=== PATIENT | female | born 1935 | race African-American/Black ===

== ENCOUNTER 2020-02-09 23:55 | Inpatient (IN) | payer MEDICARE, MEDICAID ==
[~2020-02-09] VITALS: Ht 157.5 cm; Wt 61.2 kg
[~2020-02-09 23:55] MED LIST: ASPI325T85 PO; ATOR40TA70 PO; DOCU-276; EZET10TA13 PO; INSULIN; METO25TA6 PO; POTA20TA82; VALS320T2
[2020-02-10] MEDS ORDERED: SODIUM CHLORIDE 0.9% 1,000 ML IV ONE (00:38)
[2020-02-10] MEDS ORDERED: ONDANSETRON HCL 4MG/2ML INJ IV STA (00:38)
[2020-02-10] MEDS ORDERED: MORPHINE SULFATE 4 MG/ML CPJ (NOT FOR IM USE) IV STA (00:38)
[2020-02-10 01:35] LABS: BASOPHILS % 0.5 % (0.0-2.0); HEMATOCRIT. 37.8 % (36.0-48.0); HEMOGLOBIN. 12.7 g/dL (12.0-16.0); LYMPHOCYTES % 24.5 % (20.0-50.0); MEAN CORPUSCULAR HEMOGLOBIN 32.4 pg (28.0-32.0); MEAN CORPUSCULAR VOLUME 96.6 fL (81.0-99.0); MEAN PLATELET VOLUME 9.3 fl (7.4-10.4); MONOCYTES % 6.3 % (2.0-8.0); NEUTROPHILS % 65.7 % (40.0-76.0); PLATELET 297 x1000/uL (130-400); RED BLOOD CELL COUNT 3.92 mill/uL (4.2-5.4); RED CELL DISTRIBUTION WIDTH 16.1 % (11.6-14.6)
[2020-02-10 01:36] LABS: PARTIAL THROMBOPLASTIN TIME 27.5 sec (23.4-31.0)
[2020-02-10 02:38] LABS: CHLORIDE 107 mEq/L (98-107)
[2020-02-10] MEDS ORDERED: HYDRALAZINE 20MG/ML VIAL IV ONE (04:00)
[2020-02-10] MEDS ORDERED: ONDANSETRON HCL 4MG/2ML INJ IV PRN (09:15)
[2020-02-10 09:59] VITALS: BP 122/52
[2020-02-10 10:00] VITALS: BP 122/52
[2020-02-10] MEDS: MORPHINE SULFATE 2 MG/ML CPJ (NOT FOR IM USE) IV PRN ×2 (10:18→20:05)
[2020-02-10 12:00] VITALS: BP 144/52
[2020-02-10] MEDS: SODIUM CHLORIDE 0.9% 1,000 ML IV SCH (13:35)
[2020-02-10] MEDS ORDERED: DEXTROSE 50% WATER 50ML SYRINGE IV PRN (15:15)
[2020-02-10 16:00] VITALS: BP 136/54
[2020-02-10] MEDS: INSULIN LISPRO 100 UNITS/ML SUBCUT SCH ×2 (16:50→20:17)
[2020-02-10] MEDS: BLOOD SUGAR DIAGNOSTIC STRIP TEST SCH ×2 (16:50→20:05)
[2020-02-10] MEDS ORDERED: INFLUENZA VIRUS VACCINE(AFLURIA) 0.5ML SYR IM ONE (18:15)
[2020-02-10] MEDS ORDERED: PNEUMOCOCCAL 23-VAL P-SAC VAC 0.5 ML IM ONE (18:15)
[2020-02-10 20:00] VITALS: BP 160/65
[2020-02-11] VITALS: BP 127/57
[2020-02-11] MEDS: SODIUM CHLORIDE 0.9% 1,000 ML IV SCH ×2 (03:08→11:55)
[2020-02-11 04:00] VITALS: BP 176/82
[2020-02-11] MEDS: MORPHINE SULFATE 2 MG/ML CPJ (NOT FOR IM USE) IV PRN (05:35)
[2020-02-11 06:16] LABS: BASOPHILS % 0.4 % (0.0-2.0); EOSINOPHILS % 2.8 % (0.0-5.0); HEMATOCRIT. 36.4 % (36.0-48.0); HEMOGLOBIN. 12.1 g/dL (12.0-16.0); LYMPHOCYTES % 21.1 % (20.0-50.0); MEAN CORPUSCULAR VOLUME 96.7 fL (81.0-99.0); MEAN PLATELET VOLUME 9.4 fl (7.4-10.4); MONOCYTES % 11.1 % (2.0-8.0); NEUTROPHILS % 64.6 % (40.0-76.0); PLATELET 228 x1000/uL (130-400); RED BLOOD CELL COUNT 3.77 mill/uL (4.2-5.4); RED CELL DISTRIBUTION WIDTH 15.3 % (11.6-14.6)
[2020-02-11] MEDS: BLOOD SUGAR DIAGNOSTIC STRIP TEST SCH ×4 (06:22→21:00)
[2020-02-11] MEDS: INSULIN LISPRO 100 UNITS/ML SUBCUT SCH ×4 (07:48→21:20)
[2020-02-11 08:00] VITALS: BP 182/64
[2020-02-11] MEDS ORDERED: ATOR20TA65 PO (09:25)
[2020-02-11] MEDS ORDERED: METF-414 PO (09:25)
[2020-02-11] MEDS: LOSARTAN POTASSIUM 25 MG TABLET PO SCH (09:51)
[2020-02-11] MEDS: METOPROLOL TARTRATE 25MG TABLET PO SCH ×2 (09:51→21:18)
[2020-02-11] MEDS ORDERED: TRANEXAMIC ACID 1,000 MG in SODIUM CHLORIDE 0.9% 100 ML IV NR ×2 (11:00→12:00)
[2020-02-11] MEDS ORDERED: POLYETHYLENE GLYCOL 3350 (17GM) 1 DOSE PACK PO PRN (12:15)
[2020-02-11] MEDS ORDERED: MAGNESIUM HYDROXIDE 400MG/5ML 30ML UDC PO PRN (12:15)
[2020-02-11] MEDS ORDERED: DOCUSATE SODIUM 100MG CAPSULE PO PRN (12:15)
[2020-02-11] MEDS ORDERED: BISACODYL 10MG SUPP PR PRN (12:15)
[2020-02-11] MEDS ORDERED: SENNOSIDES/DOCUSATE SOD 8.6/50MG TABLET PO PRN (12:15)
[2020-02-11] MEDS ORDERED: MORPHINE SULFATE/PF 1MG/ML 10ML AMP ONE (12:17)
[2020-02-11] MEDS ORDERED: KETOROLAC 30MG/ML VIAL ONE (12:17)
[2020-02-11] MEDS ORDERED: EPINEPHRINE 1:1000 1 MG/ML AMP ONE (12:17)
[2020-02-11] MEDS ORDERED: ROPIVACAINE HCL 10MG/ML 20 ML VIAL EPI ONE (12:18)
[2020-02-11] MEDS ORDERED: BACITRACIN 15GM TUBE TOP ONE (12:18)
[2020-02-11] MEDS ORDERED: BACITRACIN 50,000 UNITS/VIAL ONE (12:18)
[2020-02-11] MEDS ORDERED: VANCOMYCIN HCL 1 GM/VIAL ONE (12:18)
[2020-02-11] MEDS ORDERED: NORMAL SALINE 0.9% 10 ML SYR ONE (12:19)
[2020-02-11] MEDS ORDERED: PROPOFOL 200MG/20ML VIAL IV ONE (12:48)
[2020-02-11] MEDS ORDERED: LIDOCAINE HCL/PF 1% 10 MG/ML 5ML VIAL ONE (12:49)
[2020-02-11] MEDS ORDERED: SUCCINYLCHOLINE CHLORIDE 200MG/10ML IV ONE (12:49)
[2020-02-11] MEDS ORDERED: FENTANYL CITRATE/PF 50MCG/ML 2ML VIAL ONE ×2 (12:50→14:17)
[2020-02-11] MEDS ORDERED: ROCURONIUM BROMIDE 10MG/ML VIAL 5ML IV ONE (13:15)
[2020-02-11] MEDS ORDERED: LABETALOL HCL 5MG/ML VIAL 20ML IV ONE ×2 (13:38→14:36)
[2020-02-11] MEDS ORDERED: NEOSTIGMINE METHYLSULFATE 1MG/ML 10 ML VIAL ONE (14:14)
[2020-02-11] MEDS ORDERED: GLYCOPYRROLATE 0.2 MG/ML 2ML VIAL ONE (14:14)
[2020-02-11] MEDS ORDERED: LABETALOL 5MG/ML SYR 20 MG/4 ML SYRINGE IV PRN (14:15)
[2020-02-11] MEDS ORDERED: ONDANSETRON HCL 4MG/2ML INJ IV PRN (14:15)
[2020-02-11] MEDS ORDERED: MEPERIDINE HCL/PF 25MG/ML CPJ IV PRN (14:15)
[2020-02-11] MEDS ORDERED: HYDROMORPHONE HCL/PF 2MG/ML CPJ IV PRN (14:15)
[2020-02-11] MEDS ORDERED: SKIN ADHESIVE 0.7 GM EA TOP ONE (14:18)
[2020-02-11] MEDS ORDERED: HYDROCODONE/ACETAMINOPHEN 5/325MG TABLET PO PRN ×2 (14:30)
[2020-02-11] MEDS ORDERED: KETOROLAC 30MG/ML VIAL IV PRN (14:30)
[2020-02-11] MEDS ORDERED: CEFAZOLIN SODIUM 1000MG/VIAL ONE (14:37)
[2020-02-11] MEDS ORDERED: SODIUM CHLORIDE 0.9% 10ML VIAL ONE (14:37)
[2020-02-11] MEDS ORDERED: NALOXONE INJ IV PRN (15:30)
[2020-02-11] MEDS ORDERED: DIPHENHYDRAMINE INJ IV PRN (15:30)
[2020-02-11] MEDS ORDERED: ONDANSETRON INJ IV PRN (15:30)
[2020-02-11] MEDS ORDERED: HYDROMORPHONE PCA 10MG/50ML IV PRN (15:30)
[2020-02-11 16:00] VITALS: BP 156/56
[2020-02-11] MEDS ORDERED: CEFAZOLIN 1000MG PREMIX 50 ML IV SCH (16:30)
[2020-02-11 20:00] VITALS: BP 164/42
[2020-02-11] MEDS: CEFAZOLIN 1000MG PREMIX 50 ML IV SCH (21:19)
[2020-02-12] VITALS: BP 139/49
[2020-02-12 04:00] VITALS: BP 108/54
[2020-02-12] MEDS: CEFAZOLIN 1000MG PREMIX 50 ML IV SCH ×3 (05:57→21:13)
[2020-02-12] MEDS: SODIUM CHLORIDE 0.9% 1,000 ML IV SCH ×2 (05:57→14:45)
[2020-02-12 06:55] LABS: BASOPHILS % 0.2 % (0.0-2.0); EOSINOPHILS % 0.3 % (0.0-5.0); HEMOGLOBIN. 9.3 g/dL (12.0-16.0); LYMPHOCYTES % 13.6 % (20.0-50.0); MEAN CORPUSCULAR HEMOGLOBIN 32.1 pg (28.0-32.0); MEAN CORPUSCULAR VOLUME 96.8 fL (81.0-99.0); MEAN PLATELET VOLUME 8.9 fl (7.4-10.4); MONOCYTES % 11.4 % (2.0-8.0); NEUTROPHILS % 74.5 % (40.0-76.0); PLATELET 210 x1000/uL (130-400); RED BLOOD CELL COUNT 2.89 mill/uL (4.2-5.4); RED CELL DISTRIBUTION WIDTH 15.1 % (11.6-14.6)
[2020-02-12 08:00] VITALS: BP 121/50
[2020-02-12] MEDS: INSULIN LISPRO 100 UNITS/ML SUBCUT SCH ×3 (08:10→17:57)
[2020-02-12] MEDS: BLOOD SUGAR DIAGNOSTIC STRIP TEST SCH ×4 (08:26→21:14)
[2020-02-12] MEDS: METOPROLOL TARTRATE 25MG TABLET PO SCH ×2 (08:34→20:38)
[2020-02-12] MEDS: LOSARTAN POTASSIUM 25 MG TABLET PO SCH (08:34)
[2020-02-12 12:00] VITALS: BP 121/41
[2020-02-12 16:17] VITALS: BP 145/65
[2020-02-12] MEDS: DOCUSATE SODIUM 100MG CAPSULE PO SCH (17:32)
[2020-02-12 20:00] VITALS: BP 143/60
[2020-02-12] MEDS: POLYETHYLENE GLYCOL 3350 (17GM) 1 DOSE PACK PO SCH (20:38)
[2020-02-12] MEDS: MORPHINE SULFATE 2 MG/ML CPJ (NOT FOR IM USE) IV PRN (20:42)
[2020-02-13] VITALS: BP 166/71
[2020-02-13] MEDS ORDERED: LORAZEPAM 2MG/ML CPJ IV NR (01:00)
[2020-02-13] MEDS: MORPHINE SULFATE 2 MG/ML CPJ (NOT FOR IM USE) IV PRN (01:19)
[2020-02-13] MEDS: INSULIN LISPRO 100 UNITS/ML SUBCUT SCH ×5 (01:29→21:41)
[2020-02-13 04:00] VITALS: BP 167/67
[2020-02-13] MEDS: SODIUM CHLORIDE 0.9% 1,000 ML IV SCH ×2 (04:04→17:15)
[2020-02-13] MEDS: CEFAZOLIN 1000MG PREMIX 50 ML IV SCH ×3 (05:49→21:31)
[2020-02-13 06:17] LABS: BASOPHILS % 0.4 % (0.0-2.0); EOSINOPHILS % 2.7 % (0.0-5.0); HEMATOCRIT. 27.3 % (36.0-48.0); HEMOGLOBIN. 8.9 g/dL (12.0-16.0); LYMPHOCYTES % 27.2 % (20.0-50.0); MEAN CORPUSCULAR HEMOGLOBIN 31.9 pg (28.0-32.0); MEAN CORPUSCULAR VOLUME 97.6 fL (81.0-99.0); MEAN PLATELET VOLUME 9.3 fl (7.4-10.4); MONOCYTES % 12.7 % (2.0-8.0); PLATELET 208 x1000/uL (130-400); RED CELL DISTRIBUTION WIDTH 15.2 % (11.6-14.6)
[2020-02-13 06:24] LABS: CHLORIDE 113 mEq/L (98-107)
[2020-02-13] MEDS: BLOOD SUGAR DIAGNOSTIC STRIP TEST SCH ×4 (07:50→21:32)
[2020-02-13 08:00] VITALS: BP 130/74
[2020-02-13] MEDS: DOCUSATE SODIUM 100MG CAPSULE PO SCH ×2 (09:25→17:25)
[2020-02-13] MEDS: LOSARTAN POTASSIUM 25 MG TABLET PO SCH (09:25)
[2020-02-13] MEDS: METOPROLOL TARTRATE 25MG TABLET PO SCH ×2 (09:32→21:32)
[2020-02-13 12:00] VITALS: BP 158/68
[2020-02-13] MEDS ORDERED: LACTULOSE 20G/30ML UDC PO STA (13:51)
[2020-02-13] MEDS: LACTULOSE 20G/30ML UDC PO SCH ×3 (14:50→21:31)
[2020-02-13 16:00] VITALS: BP 160/67
[2020-02-13 19:59] LABS: TOTAL IRON BINDING CAPACITY 190 ug/dL (250-450)
[2020-02-13 20:00] VITALS: BP 134/96
[2020-02-13] MEDS: POLYETHYLENE GLYCOL 3350 (17GM) 1 DOSE PACK PO SCH (21:31)
[2020-02-13] MEDS: FAMOTIDINE 20MG TABLET PO SCH (21:32)
[2020-02-14] VITALS (7 sets, daily range): BP systolic 119–180; BP diastolic 44–81
[2020-02-14] MEDS: SODIUM CHLORIDE 0.9% 1,000 ML IV SCH (01:51)
[2020-02-14] MEDS: MORPHINE SULFATE 2 MG/ML CPJ (NOT FOR IM USE) IV PRN (04:28)
[2020-02-14] MEDS: CEFAZOLIN 1000MG PREMIX 50 ML IV SCH ×3 (05:09→21:48)
[2020-02-14 05:48] LABS: CHLORIDE 111 mEq/L (98-107)
[2020-02-14] MEDS: CLONIDINE 0.1MG TABLET PO PRN (05:51)
[2020-02-14 06:00] LABS: TOTAL IRON BINDING CAPACITY 311 ug/dL (250-450)
[2020-02-14 06:19] LABS: FOLIC ACID (FOLATE) SERUM 12.4 ng/mL (>5.38)
[2020-02-14 06:24] LABS: BASOPHILS % 0.8 % (0.0-2.0); EOSINOPHILS % 4.2 % (0.0-5.0); HEMATOCRIT. 26.7 % (36.0-48.0); HEMOGLOBIN. 8.9 g/dL (12.0-16.0); MEAN CORPUSCULAR HEMOGLOBIN 32.4 pg (28.0-32.0); MEAN CORPUSCULAR VOLUME 96.9 fL (81.0-99.0); MEAN PLATELET VOLUME 9.8 fl (7.4-10.4); MONOCYTES % 11.2 % (2.0-8.0); NEUTROPHILS % 59.8 % (40.0-76.0); PLATELET 176 x1000/uL (130-400); RED BLOOD CELL COUNT 2.76 mill/uL (4.2-5.4); RED CELL DISTRIBUTION WIDTH 15.4 % (11.6-14.6)
[2020-02-14] MEDS: BLOOD SUGAR DIAGNOSTIC STRIP TEST SCH ×4 (06:57→21:04)
[2020-02-14] MEDS: INSULIN LISPRO 100 UNITS/ML SUBCUT SCH ×4 (06:57→20:26)
[2020-02-14] MEDS: LOSARTAN POTASSIUM 25 MG TABLET PO SCH ×2 (09:29→20:06)
[2020-02-14] MEDS: DOCUSATE SODIUM 100MG CAPSULE PO SCH ×2 (09:29→18:33)
[2020-02-14] MEDS: METOPROLOL TARTRATE 25MG TABLET PO SCH ×2 (09:29→20:06)
[2020-02-14] MEDS: ASPIRIN 81MG TABLET PO SCH (18:33)
[2020-02-14] MEDS: FAMOTIDINE 20MG TABLET PO SCH (20:06)
[2020-02-14] MEDS: POLYETHYLENE GLYCOL 3350 (17GM) 1 DOSE PACK PO SCH (20:06)
[2020-02-14] MEDS: ACETAMINOPHEN 325MG TABLET PO PRN (20:12)
[2020-02-15] VITALS: BP 178/59
[2020-02-15] MEDS: CLONIDINE 0.1MG TABLET PO PRN (02:06)
[2020-02-15 04:00] VITALS: BP 118/61
[2020-02-15] MEDS: CEFAZOLIN 1000MG PREMIX 50 ML IV SCH ×2 (06:05→14:42)
[2020-02-15] MEDS: BLOOD SUGAR DIAGNOSTIC STRIP TEST SCH ×3 (06:21→17:40)
[2020-02-15] MEDS: INSULIN LISPRO 100 UNITS/ML SUBCUT SCH ×3 (06:21→18:10)
[2020-02-15 07:12] LABS: CHLORIDE 112 mEq/L (98-107)
[2020-02-15 07:17] LABS: BASOPHILS % 0.6 % (0.0-2.0); EOSINOPHILS % 5.5 % (0.0-5.0); HEMATOCRIT. 26.2 % (36.0-48.0); HEMOGLOBIN. 8.7 g/dL (12.0-16.0); LYMPHOCYTES % 25.7 % (20.0-50.0); MEAN CORPUSCULAR HEMOGLOBIN 31.8 pg (28.0-32.0); MEAN CORPUSCULAR VOLUME 95.9 fL (81.0-99.0); MEAN PLATELET VOLUME 9.1 fl (7.4-10.4); MONOCYTES % 10.8 % (2.0-8.0); NEUTROPHILS % 57.4 % (40.0-76.0); PLATELET 237 x1000/uL (130-400); RED BLOOD CELL COUNT 2.73 mill/uL (4.2-5.4); RED CELL DISTRIBUTION WIDTH 15.5 % (11.6-14.6)
[2020-02-15] MEDS: LOSARTAN POTASSIUM 25 MG TABLET PO SCH ×2 (09:01→20:04)
[2020-02-15] MEDS: DOCUSATE SODIUM 100MG CAPSULE PO SCH ×2 (09:01→18:32)
[2020-02-15] MEDS: METOPROLOL TARTRATE 25MG TABLET PO SCH ×2 (09:02→20:05)
[2020-02-15] MEDS: ASPIRIN 81MG TABLET PO SCH ×2 (09:02→18:32)
[2020-02-15] MEDS: ACETAMINOPHEN 325MG TABLET PO PRN ×2 (11:30→20:04)
[2020-02-15 12:00] VITALS: BP 138/71
[2020-02-15 16:00] VITALS: BP 158/47
[2020-02-15] MEDS: FAMOTIDINE 20MG TABLET PO SCH (20:05)
[2020-02-17 08:07] LABS: 25-HYDROXY VITAMIN D3 18 ng/mL (.)
== END 2020-02-15 21:10 | DRG 469 ==
LOC: ER 23:55 → 7WST 02-10 04:52 → EDBEDREQTM 02-10 05:00 → EDBEDREQ 02-10 05:00 → ENRESERV 02-10 07:42
PROVIDERS: ADMIT Internal Medicine; ATTEND Internal Medicine
PROC: 0SRR0JA Replacement of Right Hip Joint, Femoral Surface with Synthetic Substitute, Uncemented, Open Approach (ICD-10-PCS; principal; 2020-02-11)
DX: S72.011A Unspecified intracapsular fracture of right femur, initial encounter for closed fracture (principal); G92 Toxic encephalopathy; D64.9 Anemia, unspecified; E11.51 Type 2 diabetes mellitus with diabetic peripheral angiopathy without gangrene; I25.10 Atherosclerotic heart disease of native coronary artery without angina pectoris; E78.5 Hyperlipidemia, unspecified; M48.02 Spinal stenosis, cervical region; K57.30 Diverticulosis of large intestine without perforation or abscess without bleeding; R26.9 Unspecified abnormalities of gait and mobility; W18.39XA Other fall on same level, initial encounter; I11.9 Hypertensive heart disease without heart failure; Z60.2 Problems related to living alone; Z95.1 Presence of aortocoronary bypass graft; Z86.73 Personal history of transient ischemic attack (TIA), and cerebral infarction without residual deficits; Z79.82 Long term (current) use of aspirin; Z79.84 Long term (current) use of oral hypoglycemic drugs; Z79.899 Other long term (current) drug therapy; Y93.89 Activity, other specified; Y92.89 Other specified places as the place of occurrence of the external cause; Y99.8 Other external cause status
CPT/HCPCS: 36415; 71045; 72170; 72192; 73502; 73552; 80048; 80053; 82270; 82306; 82607; 82728; 82746; 82962; 83540; 83550; 83735; 84443; 84484; 85025; 86850; 86900; 88305; 88311; 90686; 90732; 92523; 92610; 93005; 93306; 97162; 97166; 97530; 99285; C1776; J0330; J0360; J0690; J1170; J1815; J1885; J2270; J2274; J2405; J2704; J2710; J2795; J3010; J3370; J3490; J7030; J7050

== ENCOUNTER 2020-02-15 21:07 | Inpatient (IN) | payer MEDICARE, MEDICAID ==
[~2020-02-15] VITALS: Ht 157.5 cm; Wt 61.7 kg
[2020-02-15 21:07] VITALS: BP 154/56
[~2020-02-15 21:07] MED LIST changes: +ATOR20TA65 PO; -ATOR40TA70 PO; +METF-414 PO
[2020-02-15] MEDS ORDERED: SENNOSIDES/DOCUSATE SOD 8.6/50MG TABLET PO PRN (22:00)
[2020-02-15] MEDS ORDERED: DOCUSATE SODIUM 100MG CAPSULE PO PRN (22:00)
[2020-02-15] MEDS ORDERED: ONDANSETRON HCL 4MG/2ML INJ IV PRN (22:00)
[2020-02-15] MEDS ORDERED: MAGNESIUM HYDROXIDE 400MG/5ML 30ML UDC PO PRN (22:00)
[2020-02-15] MEDS ORDERED: NALOXONE HCL 0.4 MG/ML 1ML VIAL IV PRN (22:00)
[2020-02-15] MEDS ORDERED: BISACODYL 10MG SUPP PR PRN (22:00)
[2020-02-15] MEDS ORDERED: DEXTROSE 50% WATER 50ML SYRINGE IV PRN (22:00)
[2020-02-15] MEDS ORDERED: DIPHENHYDRAMINE 50MG/ML VIAL IV PRN (22:00)
[2020-02-15] MEDS: INSULIN LISPRO 100 UNITS/ML SUBCUT SCH (23:00)
[2020-02-15] MEDS: BLOOD SUGAR DIAGNOSTIC STRIP TEST SCH (23:51)
[2020-02-15] MEDS: CEFAZOLIN 1000MG PREMIX 50 ML IV SCH (23:53)
[2020-02-16 05:33] LABS: CLARITY URINE CLEAR (CLEAR); COLOR URINE YELLOW (YELLOW); KETONES URINE NEGATIVE (NEGATIVE); LEUKOCYTE ESTERASE URINE NEGATIVE (NEGATIVE); NITRITE URINE NEGATIVE (NEGATIVE); OCCULT BLOOD URINE NEGATIVE (NEGATIVE); PH URINE 6.5 (4.5-8.0); PROTEIN URINE NEGATIVE (NEGATIVE); SPECIFIC GRAVITY URINE 1.011 (1.005-1.030); UROBILINOGEN URINE 0.2 E.U./dL (0.2-1.0)
[2020-02-16 05:56] LABS: CHLORIDE 112 mEq/L (98-107)
[2020-02-16 06:20] LABS: BASOPHILS % 0.6 % (0.0-2.0); EOSINOPHILS % 4.8 % (0.0-5.0); HEMATOCRIT. 27.5 % (36.0-48.0); HEMOGLOBIN. 9.4 g/dL (12.0-16.0); LYMPHOCYTES % 29.7 % (20.0-50.0); MEAN CORPUSCULAR HEMOGLOBIN 32.7 pg (28.0-32.0); MEAN CORPUSCULAR VOLUME 95.7 fL (81.0-99.0); MEAN PLATELET VOLUME 8.5 fl (7.4-10.4); MONOCYTES % 11.7 % (2.0-8.0); NEUTROPHILS % 53.2 % (40.0-76.0); PLATELET 260 x1000/uL (130-400); RED BLOOD CELL COUNT 2.88 mill/uL (4.2-5.4); RED CELL DISTRIBUTION WIDTH 15.1 % (11.6-14.6)
[2020-02-16] MEDS: BLOOD SUGAR DIAGNOSTIC STRIP TEST SCH ×5 (06:52→21:23)
[2020-02-16] MEDS: INSULIN LISPRO 100 UNITS/ML SUBCUT SCH ×4 (06:53→21:00)
[2020-02-16 08:14] VITALS: BP 217/81
[2020-02-16 08:30] VITALS: BP 173/54
[2020-02-16] MEDS: CYANOCOBALAMIN 1000MCG/ML VIAL IM SCH (08:52)
[2020-02-16] MEDS: METOPROLOL TARTRATE 25MG TABLET PO SCH ×2 (08:52→22:52)
[2020-02-16] MEDS: ASPIRIN 81MG TABLET PO SCH ×2 (08:52→17:14)
[2020-02-16] MEDS: DOCUSATE SODIUM 100MG CAPSULE PO SCH ×2 (08:52→17:00)
[2020-02-16] MEDS: LOSARTAN POTASSIUM 25 MG TABLET PO SCH ×2 (08:52→21:22)
[2020-02-16] MEDS: CEFAZOLIN 1000MG PREMIX 50 ML IV SCH ×3 (08:52→23:41)
[2020-02-16 09:25] VITALS: BP 156/43
[2020-02-16] MEDS: EZETIMIBE 10MG TABLET PO SCH (12:14)
[2020-02-16] MEDS: AMLODIPINE 5MG TABLET PO SCH ×2 (12:14→21:22)
[2020-02-16] MEDS: ATORVASTATIN CALCIUM 20MG TABLET PO SCH (12:15)
[2020-02-16] MEDS ORDERED: HYDRALAZINE HCL 50MG TABLET PO SCH (14:00)
[2020-02-16] MEDS: HYDRALAZINE HCL 25MG TABLET PO SCH ×2 (15:26→22:52)
[2020-02-16] MEDS: ACETAMINOPHEN 325MG TABLET PO PRN (19:59)
[2020-02-16] MEDS: CLONIDINE 0.1MG TABLET PO PRN (19:59)
[2020-02-16 20:00] VITALS: BP 194/80
[2020-02-16] MEDS: POLYETHYLENE GLYCOL 3350 (17GM) 1 DOSE PACK PO SCH (21:00)
[2020-02-16] MEDS: IRON SUCROSE COMPLEX 100 MG in SODIUM CHLORIDE 0.9% 95 ML IV SCH (21:19)
[2020-02-16] MEDS: FAMOTIDINE 20MG TABLET PO SCH (21:19)
[2020-02-17] MEDS: HYDRALAZINE HCL 25MG TABLET PO SCH ×3 (05:44→21:31)
[2020-02-17 06:34] LABS: BASOPHILS % 0.6 % (0.0-2.0); EOSINOPHILS % 4.9 % (0.0-5.0); HEMATOCRIT. 29.5 % (36.0-48.0); HEMOGLOBIN. 9.8 g/dL (12.0-16.0); LYMPHOCYTES % 27.8 % (20.0-50.0); MEAN CORPUSCULAR HEMOGLOBIN 31.8 pg (28.0-32.0); MEAN CORPUSCULAR VOLUME 95.1 fL (81.0-99.0); MEAN PLATELET VOLUME 8.1 fl (7.4-10.4); MONOCYTES % 12.5 % (2.0-8.0); NEUTROPHILS % 54.2 % (40.0-76.0); PLATELET 311 x1000/uL (130-400); RED CELL DISTRIBUTION WIDTH 15.1 % (11.6-14.6)
[2020-02-17] MEDS: BLOOD SUGAR DIAGNOSTIC STRIP TEST SCH ×4 (06:36→20:41)
[2020-02-17] MEDS: HYDROCODONE/ACETAMINOPHEN 5/325MG TABLET PO PRN (06:36)
[2020-02-17 06:39] LABS: CHLORIDE 110 mEq/L (98-107)
[2020-02-17 08:00] VITALS: BP 127/64
[2020-02-17] MEDS: AMLODIPINE 5MG TABLET PO SCH ×2 (08:36→20:41)
[2020-02-17] MEDS: ASPIRIN 81MG TABLET PO SCH ×2 (08:36→16:36)
[2020-02-17] MEDS: EZETIMIBE 10MG TABLET PO SCH (08:36)
[2020-02-17] MEDS: LOSARTAN POTASSIUM 25 MG TABLET PO SCH ×2 (08:36→20:40)
[2020-02-17] MEDS: DOCUSATE SODIUM 100MG CAPSULE PO SCH ×2 (08:36→16:37)
[2020-02-17] MEDS: ATORVASTATIN CALCIUM 20MG TABLET PO SCH (08:36)
[2020-02-17] MEDS: CYANOCOBALAMIN 1000MCG/ML VIAL IM SCH (08:37)
[2020-02-17] MEDS: METOPROLOL TARTRATE 25MG TABLET PO SCH ×2 (08:37→20:40)
[2020-02-17] MEDS: INSULIN LISPRO 100 UNITS/ML SUBCUT SCH ×4 (08:57→21:31)
[2020-02-17] MEDS ORDERED: NA PHOS,M-B/NA PHOS,DI-BA ENEMA 118ML PR NR (12:00)
[2020-02-17] MEDS: ERGOCALCIFEROL 50000UNITS CAPSULE PO SCH (18:46)
[2020-02-17 20:00] VITALS: BP 155/65
[2020-02-17] MEDS: IRON SUCROSE COMPLEX 100 MG in SODIUM CHLORIDE 0.9% 95 ML IV SCH (20:40)
[2020-02-17] MEDS: FAMOTIDINE 20MG TABLET PO SCH (20:41)
[2020-02-17] MEDS: POLYETHYLENE GLYCOL 3350 (17GM) 1 DOSE PACK PO SCH (20:42)
[2020-02-17] MEDS: CLONIDINE 0.1MG TABLET PO PRN (23:41)
[2020-02-17] MEDS: ACETAMINOPHEN 325MG TABLET PO PRN (23:41)
[2020-02-18 01:15] VITALS: BP 126/56
[2020-02-18] MEDS: INSULIN LISPRO 100 UNITS/ML SUBCUT SCH ×4 (06:11→20:22)
[2020-02-18] MEDS: BLOOD SUGAR DIAGNOSTIC STRIP TEST SCH ×4 (06:11→20:22)
[2020-02-18] MEDS: HYDRALAZINE HCL 25MG TABLET PO SCH ×3 (06:11→21:51)
[2020-02-18 07:15] LABS: BASOPHILS % 0.4 % (0.0-2.0); EOSINOPHILS % 4.8 % (0.0-5.0); HEMATOCRIT. 29.6 % (36.0-48.0); LYMPHOCYTES % 28.8 % (20.0-50.0); MEAN CORPUSCULAR HEMOGLOBIN 32.2 pg (28.0-32.0); MEAN CORPUSCULAR VOLUME 95.4 fL (81.0-99.0); MEAN PLATELET VOLUME 8.3 fl (7.4-10.4); MONOCYTES % 9.2 % (2.0-8.0); NEUTROPHILS % 56.8 % (40.0-76.0); PLATELET 327 x1000/uL (130-400); RED CELL DISTRIBUTION WIDTH 15.5 % (11.6-14.6)
[2020-02-18 07:51] LABS: CHLORIDE 111 mEq/L (98-107)
[2020-02-18 08:06] LABS: PHOSPHORUS 3.3 mg/dL (2.5-4.9)
[2020-02-18 08:14] VITALS: BP 158/78
[2020-02-18] MEDS: METOPROLOL TARTRATE 25MG TABLET PO SCH ×2 (09:00→20:22)
[2020-02-18] MEDS: CYANOCOBALAMIN 1000MCG/ML VIAL IM SCH ×2 (09:00→10:15)
[2020-02-18] MEDS: ACETAMINOPHEN 325MG TABLET PO PRN (10:08)
[2020-02-18] MEDS: DOCUSATE SODIUM 100MG CAPSULE PO SCH ×2 (10:08→17:24)
[2020-02-18] MEDS: ASPIRIN 81MG TABLET PO SCH ×2 (10:08→17:24)
[2020-02-18] MEDS: LOSARTAN POTASSIUM 25 MG TABLET PO SCH ×2 (10:09→20:20)
[2020-02-18] MEDS: EZETIMIBE 10MG TABLET PO SCH (10:09)
[2020-02-18] MEDS: ATORVASTATIN CALCIUM 20MG TABLET PO SCH (10:09)
[2020-02-18] MEDS: AMLODIPINE 5MG TABLET PO SCH ×2 (10:09→20:21)
[2020-02-18] MEDS: HYDROCODONE/ACETAMINOPHEN 5/325MG TABLET PO PRN (10:19)
[2020-02-18 20:00] VITALS: BP 144/73
[2020-02-18] MEDS: POLYETHYLENE GLYCOL 3350 (17GM) 1 DOSE PACK PO SCH (20:21)
[2020-02-18] MEDS: FAMOTIDINE 20MG TABLET PO SCH (20:21)
[2020-02-18] MEDS: IRON SUCROSE COMPLEX 100 MG in SODIUM CHLORIDE 0.9% 95 ML IV SCH (21:50)
[2020-02-19] MEDS: BLOOD SUGAR DIAGNOSTIC STRIP TEST SCH ×4 (06:08→21:46)
[2020-02-19] MEDS: HYDRALAZINE HCL 25MG TABLET PO SCH (06:08)
[2020-02-19] MEDS: INSULIN LISPRO 100 UNITS/ML SUBCUT SCH ×4 (06:08→21:00)
[2020-02-19 06:46] VITALS: BP 144/61
[2020-02-19] MEDS: HYDROCODONE/ACETAMINOPHEN 5/325MG TABLET PO PRN (07:55)
[2020-02-19] MEDS: AMLODIPINE 5MG TABLET PO SCH ×2 (09:36→21:46)
[2020-02-19] MEDS: CYANOCOBALAMIN 1000MCG/ML VIAL IM SCH (09:36)
[2020-02-19] MEDS: EZETIMIBE 10MG TABLET PO SCH (09:36)
[2020-02-19] MEDS: METOPROLOL TARTRATE 25MG TABLET PO SCH ×2 (09:37→21:45)
[2020-02-19] MEDS: ASPIRIN 81MG TABLET PO SCH ×2 (09:37→17:01)
[2020-02-19] MEDS: DOCUSATE SODIUM 100MG CAPSULE PO SCH ×2 (09:37→17:01)
[2020-02-19] MEDS: LOSARTAN POTASSIUM 25 MG TABLET PO SCH ×2 (09:37→21:44)
[2020-02-19] MEDS: ATORVASTATIN CALCIUM 20MG TABLET PO SCH (09:37)
[2020-02-19] MEDS: HYDRALAZINE HCL 50MG TABLET PO SCH ×2 (13:53→21:45)
[2020-02-19] MEDS ORDERED: LACTULOSE 20G/30ML UDC PO NR (15:00)
[2020-02-19 20:00] VITALS: BP 172/58
[2020-02-19] MEDS: IRON SUCROSE COMPLEX 100 MG in SODIUM CHLORIDE 0.9% 95 ML IV SCH (21:43)
[2020-02-19] MEDS: POLYETHYLENE GLYCOL 3350 (17GM) 1 DOSE PACK PO SCH (21:46)
[2020-02-19] MEDS: FAMOTIDINE 20MG TABLET PO SCH (21:51)
[2020-02-20] MEDS: HYDRALAZINE HCL 50MG TABLET PO SCH (05:35)
[2020-02-20] MEDS: BLOOD SUGAR DIAGNOSTIC STRIP TEST SCH ×4 (05:48→20:27)
[2020-02-20] MEDS: CLONIDINE 0.1MG TABLET PO PRN (06:32)
[2020-02-20 07:22] VITALS: BP 156/57
[2020-02-20] MEDS: METOPROLOL TARTRATE 25MG TABLET PO SCH ×2 (08:38→20:27)
[2020-02-20] MEDS: ATORVASTATIN CALCIUM 20MG TABLET PO SCH (08:38)
[2020-02-20] MEDS: LOSARTAN POTASSIUM 25 MG TABLET PO SCH ×2 (08:38→20:27)
[2020-02-20] MEDS: EZETIMIBE 10MG TABLET PO SCH (08:38)
[2020-02-20] MEDS: ASPIRIN 81MG TABLET PO SCH ×2 (08:38→16:47)
[2020-02-20] MEDS: DOCUSATE SODIUM 100MG CAPSULE PO SCH ×2 (08:39→16:47)
[2020-02-20] MEDS: CYANOCOBALAMIN 1000MCG/ML VIAL IM SCH (08:39)
[2020-02-20] MEDS: AMLODIPINE 5MG TABLET PO SCH ×2 (08:39→20:27)
[2020-02-20] MEDS: INSULIN LISPRO 100 UNITS/ML SUBCUT SCH ×4 (08:45→20:41)
[2020-02-20] MEDS: HYDRALAZINE HCL 100MG TABLET PO SCH ×2 (13:25→21:14)
[2020-02-20 20:00] VITALS: BP 138/55
[2020-02-20] MEDS: FAMOTIDINE 20MG TABLET PO SCH (20:26)
[2020-02-20] MEDS: IRON SUCROSE COMPLEX 100 MG in SODIUM CHLORIDE 0.9% 95 ML IV SCH (20:26)
[2020-02-20] MEDS: POLYETHYLENE GLYCOL 3350 (17GM) 1 DOSE PACK PO SCH (20:27)
[2020-02-21 05:49] LABS: BASOPHILS % 0.5 % (0.0-2.0); HEMATOCRIT. 30.6 % (36.0-48.0); HEMOGLOBIN. 10.4 g/dL (12.0-16.0); LYMPHOCYTES % 27.2 % (20.0-50.0); MEAN CORPUSCULAR HEMOGLOBIN 32.3 pg (28.0-32.0); MEAN CORPUSCULAR VOLUME 94.7 fL (81.0-99.0); MEAN PLATELET VOLUME 7.9 fl (7.4-10.4); MONOCYTES % 9.3 % (2.0-8.0); PLATELET 415 x1000/uL (130-400); RED BLOOD CELL COUNT 3.23 mill/uL (4.2-5.4); RED CELL DISTRIBUTION WIDTH 15.1 % (11.6-14.6)
[2020-02-21] MEDS: HYDRALAZINE HCL 100MG TABLET PO SCH ×3 (06:00→22:00)
[2020-02-21] MEDS: BLOOD SUGAR DIAGNOSTIC STRIP TEST SCH ×4 (06:02→21:52)
[2020-02-21] MEDS: HYDROCODONE/ACETAMINOPHEN 5/325MG TABLET PO PRN ×2 (06:03→14:14)
[2020-02-21] MEDS: INSULIN LISPRO 100 UNITS/ML SUBCUT SCH ×4 (06:10→21:00)
[2020-02-21 06:17] LABS: CHLORIDE 107 mEq/L (98-107)
[2020-02-21 08:09] VITALS: BP 144/51
[2020-02-21] MEDS: AMLODIPINE 5MG TABLET PO SCH ×2 (09:00→21:50)
[2020-02-21] MEDS: LOSARTAN POTASSIUM 25 MG TABLET PO SCH ×2 (09:47→21:00)
[2020-02-21] MEDS: DOCUSATE SODIUM 100MG CAPSULE PO SCH ×2 (09:47→17:00)
[2020-02-21] MEDS: METOPROLOL TARTRATE 25MG TABLET PO SCH ×2 (09:47→21:51)
[2020-02-21] MEDS: ASPIRIN 81MG TABLET PO SCH ×2 (09:47→18:12)
[2020-02-21] MEDS: EZETIMIBE 10MG TABLET PO SCH (09:47)
[2020-02-21] MEDS: ATORVASTATIN CALCIUM 20MG TABLET PO SCH (09:47)
[2020-02-21] MEDS ORDERED: LACTULOSE 20G/30ML UDC PO NR (16:45)
[2020-02-21 20:00] VITALS: BP 148/56
[2020-02-21] MEDS: POLYETHYLENE GLYCOL 3350 (17GM) 1 DOSE PACK PO SCH (21:00)
[2020-02-21] MEDS: ACETAMINOPHEN 325MG TABLET PO PRN (21:51)
[2020-02-21] MEDS: FAMOTIDINE 20MG TABLET PO SCH (21:57)
[2020-02-22] MEDS: HYDRALAZINE HCL 100MG TABLET PO SCH ×3 (06:09→22:00)
[2020-02-22] MEDS: BLOOD SUGAR DIAGNOSTIC STRIP TEST SCH ×4 (06:09→21:30)
[2020-02-22] MEDS: INSULIN LISPRO 100 UNITS/ML SUBCUT SCH ×4 (06:36→21:00)
[2020-02-22 08:10] VITALS: BP 159/60
[2020-02-22] MEDS: ASPIRIN 81MG TABLET PO SCH ×2 (08:56→16:58)
[2020-02-22] MEDS: EZETIMIBE 10MG TABLET PO SCH (08:56)
[2020-02-22] MEDS: ATORVASTATIN CALCIUM 20MG TABLET PO SCH (08:56)
[2020-02-22] MEDS: DOCUSATE SODIUM 100MG CAPSULE PO SCH ×2 (08:56→16:58)
[2020-02-22] MEDS: AMLODIPINE 5MG TABLET PO SCH ×2 (08:56→21:29)
[2020-02-22] MEDS: LOSARTAN POTASSIUM 25 MG TABLET PO SCH ×2 (08:56→21:00)
[2020-02-22] MEDS: METOPROLOL TARTRATE 25MG TABLET PO SCH ×2 (08:56→21:30)
[2020-02-22] MEDS: LACTULOSE 20G/30ML UDC PO SCH ×4 (12:15→16:53)
[2020-02-22] MEDS: ACETAMINOPHEN 500MG TABLET PO SCH ×2 (12:21→17:13)
[2020-02-22 13:55] VITALS: BP 140/52
[2020-02-22 20:00] VITALS: BP 136/43
[2020-02-22] MEDS: POLYETHYLENE GLYCOL 3350 (17GM) 1 DOSE PACK PO SCH (21:28)
[2020-02-22] MEDS: FAMOTIDINE 20MG TABLET PO SCH (21:30)
[2020-02-23] MEDS: HYDRALAZINE HCL 100MG TABLET PO SCH ×3 (05:42→21:12)
[2020-02-23] MEDS: ACETAMINOPHEN 500MG TABLET PO SCH ×4 (05:43→17:47)
[2020-02-23] MEDS: BLOOD SUGAR DIAGNOSTIC STRIP TEST SCH ×4 (05:43→20:38)
[2020-02-23] MEDS: INSULIN LISPRO 100 UNITS/ML SUBCUT SCH ×4 (06:15→20:46)
[2020-02-23 07:40] VITALS: BP 159/46
[2020-02-23] MEDS: EZETIMIBE 10MG TABLET PO SCH (08:40)
[2020-02-23] MEDS: LOSARTAN POTASSIUM 25 MG TABLET PO SCH ×2 (08:40→20:37)
[2020-02-23] MEDS: DOCUSATE SODIUM 100MG CAPSULE PO SCH ×2 (08:40→17:00)
[2020-02-23] MEDS: AMLODIPINE 5MG TABLET PO SCH ×2 (08:40→20:38)
[2020-02-23] MEDS: METOPROLOL TARTRATE 25MG TABLET PO SCH ×2 (08:40→20:37)
[2020-02-23] MEDS: ATORVASTATIN CALCIUM 20MG TABLET PO SCH (08:41)
[2020-02-23] MEDS: ASPIRIN 81MG TABLET PO SCH ×2 (08:41→17:00)
[2020-02-23 20:00] VITALS: BP 137/39
[2020-02-23] MEDS: POLYETHYLENE GLYCOL 3350 (17GM) 1 DOSE PACK PO SCH (20:37)
[2020-02-23] MEDS: FAMOTIDINE 20MG TABLET PO SCH (20:38)
[2020-02-24] MEDS: HYDRALAZINE HCL 100MG TABLET PO SCH ×3 (05:55→21:02)
[2020-02-24] MEDS: ACETAMINOPHEN 500MG TABLET PO SCH ×5 (05:55→23:34)
[2020-02-24] MEDS: BLOOD SUGAR DIAGNOSTIC STRIP TEST SCH ×4 (05:55→20:41)
[2020-02-24] MEDS: INSULIN LISPRO 100 UNITS/ML SUBCUT SCH ×4 (06:03→22:15)
[2020-02-24 07:25] LABS: BASOPHILS % 1.1 % (0.0-2.0); HEMATOCRIT. 29.5 % (36.0-48.0); HEMOGLOBIN. 9.9 g/dL (12.0-16.0); LYMPHOCYTES % 27.8 % (20.0-50.0); MEAN CORPUSCULAR HEMOGLOBIN 32.2 pg (28.0-32.0); MEAN CORPUSCULAR VOLUME 96.3 fL (81.0-99.0); MEAN PLATELET VOLUME 7.9 fl (7.4-10.4); MONOCYTES % 10.7 % (2.0-8.0); NEUTROPHILS % 57.4 % (40.0-76.0); PLATELET 425 x1000/uL (130-400); RED BLOOD CELL COUNT 3.06 mill/uL (4.2-5.4); RED CELL DISTRIBUTION WIDTH 15.5 % (11.6-14.6)
[2020-02-24 07:29] LABS: CHLORIDE 108 mEq/L (98-107)
[2020-02-24 07:37] LABS: PHOSPHORUS 4.1 mg/dL (2.5-4.9)
[2020-02-24 08:22] VITALS: BP 132/49
[2020-02-24] MEDS: DOCUSATE SODIUM 100MG CAPSULE PO SCH ×2 (08:30→18:12)
[2020-02-24] MEDS: LOSARTAN POTASSIUM 25 MG TABLET PO SCH ×2 (08:30→20:39)
[2020-02-24] MEDS: EZETIMIBE 10MG TABLET PO SCH (08:30)
[2020-02-24] MEDS: METOPROLOL TARTRATE 25MG TABLET PO SCH ×2 (08:31→20:40)
[2020-02-24] MEDS: ASPIRIN 81MG TABLET PO SCH ×2 (08:31→18:12)
[2020-02-24] MEDS: AMLODIPINE 5MG TABLET PO SCH ×2 (08:32→20:40)
[2020-02-24] MEDS ORDERED: SODIUM CHLORIDE 0.9% 250 ML IV ONE (11:45)
[2020-02-24 13:00] VITALS: BP 120/34
[2020-02-24] MEDS: ERGOCALCIFEROL 50000UNITS CAPSULE PO SCH (18:12)
[2020-02-24 20:00] VITALS: BP 174/51
[2020-02-24] MEDS: ATORVASTATIN CALCIUM 20MG TABLET PO SCH (20:40)
[2020-02-24] MEDS: POLYETHYLENE GLYCOL 3350 (17GM) 1 DOSE PACK PO SCH (20:40)
[2020-02-24] MEDS: FAMOTIDINE 20MG TABLET PO SCH (20:41)
[2020-02-24 22:15] VITALS: BP 134/55
[2020-02-25] MEDS: ACETAMINOPHEN 500MG TABLET PO SCH ×4 (05:15→23:02)
[2020-02-25] MEDS: BLOOD SUGAR DIAGNOSTIC STRIP TEST SCH ×4 (05:15→21:38)
[2020-02-25] MEDS: HYDRALAZINE HCL 100MG TABLET PO SCH ×3 (05:15→21:39)
[2020-02-25] MEDS: INSULIN LISPRO 100 UNITS/ML SUBCUT SCH ×4 (05:15→21:00)
[2020-02-25 06:29] VITALS: BP 123/44
[2020-02-25 06:43] LABS: BASOPHILS % 0.8 % (0.0-2.0); EOSINOPHILS % 3.7 % (0.0-5.0); HEMATOCRIT. 28.9 % (36.0-48.0); HEMOGLOBIN. 9.6 g/dL (12.0-16.0); LYMPHOCYTES % 34.8 % (20.0-50.0); MEAN CORPUSCULAR HEMOGLOBIN 31.8 pg (28.0-32.0); MEAN CORPUSCULAR VOLUME 95.5 fL (81.0-99.0); MEAN PLATELET VOLUME 8.1 fl (7.4-10.4); MONOCYTES % 10.3 % (2.0-8.0); NEUTROPHILS % 50.4 % (40.0-76.0); PLATELET 495 x1000/uL (130-400); RED BLOOD CELL COUNT 3.03 mill/uL (4.2-5.4); RED CELL DISTRIBUTION WIDTH 15.5 % (11.6-14.6)
[2020-02-25 06:52] LABS: CHLORIDE 111 mEq/L (98-107)
[2020-02-25 08:20] VITALS: BP 90/51
[2020-02-25] MEDS: AMLODIPINE 5MG TABLET PO SCH ×2 (08:38→21:38)
[2020-02-25] MEDS: METOPROLOL TARTRATE 25MG TABLET PO SCH ×2 (08:38→21:37)
[2020-02-25] MEDS: LOSARTAN POTASSIUM 25 MG TABLET PO SCH ×2 (08:38→21:37)
[2020-02-25] MEDS: DOCUSATE SODIUM 100MG CAPSULE PO SCH (09:31)
[2020-02-25] MEDS: ASPIRIN 81MG TABLET PO SCH ×2 (09:31→17:27)
[2020-02-25] MEDS: EZETIMIBE 10MG TABLET PO SCH (09:31)
[2020-02-25] MEDS: LACTULOSE 20G/30ML UDC PO NR ×2 (18:25→18:28)
[2020-02-25 20:00] VITALS: BP 156/61
[2020-02-25] MEDS: ATORVASTATIN CALCIUM 20MG TABLET PO SCH (21:37)
[2020-02-25] MEDS: POLYETHYLENE GLYCOL 3350 (17GM) 1 DOSE PACK PO SCH (21:37)
[2020-02-25] MEDS: FAMOTIDINE 20MG TABLET PO SCH (21:38)
[2020-02-26] MEDS ORDERED: HYDROCODONE/ACETAMINOPHEN 5/325MG TABLET PO PRN (03:15)
[2020-02-26] MEDS: HYDRALAZINE HCL 100MG TABLET PO SCH ×3 (06:00→21:50)
[2020-02-26] MEDS: ACETAMINOPHEN 500MG TABLET PO SCH ×4 (06:00→23:52)
[2020-02-26] MEDS: INSULIN LISPRO 100 UNITS/ML SUBCUT SCH ×4 (06:00→20:45)
[2020-02-26] MEDS: BLOOD SUGAR DIAGNOSTIC STRIP TEST SCH ×4 (06:00→20:45)
[2020-02-26 06:58] VITALS: BP 135/42
[2020-02-26 08:08] VITALS: BP 179/62
[2020-02-26] MEDS: LOSARTAN POTASSIUM 25 MG TABLET PO SCH ×2 (08:09→16:37)
[2020-02-26] MEDS: DOCUSATE SODIUM SUGAR FREE 100MG/10ML UDC PO SCH ×2 (08:09→16:36)
[2020-02-26] MEDS: EZETIMIBE 10MG TABLET PO SCH (08:09)
[2020-02-26] MEDS: ASPIRIN 81MG TABLET PO SCH ×2 (08:10→16:37)
[2020-02-26] MEDS: AMLODIPINE 5MG TABLET PO SCH ×2 (08:10→20:45)
[2020-02-26] MEDS: METOPROLOL TARTRATE 25MG TABLET PO SCH ×2 (08:10→20:44)
[2020-02-26 08:19] VITALS: BP 179/62
[2020-02-26 20:00] VITALS: BP 163/53
[2020-02-26] MEDS: ATORVASTATIN CALCIUM 20MG TABLET PO SCH (20:44)
[2020-02-26] MEDS: POLYETHYLENE GLYCOL 3350 (17GM) 1 DOSE PACK PO SCH (20:45)
[2020-02-26] MEDS: FAMOTIDINE 20MG TABLET PO SCH (20:45)
[2020-02-26] MEDS: CLONIDINE 0.1MG TABLET PO PRN (23:52)
[2020-02-27 02:15] VITALS: BP 133/53
[2020-02-27] MEDS: HYDRALAZINE HCL 100MG TABLET PO SCH ×3 (05:40→22:00)
[2020-02-27] MEDS: ACETAMINOPHEN 500MG TABLET PO SCH ×3 (05:40→17:36)
[2020-02-27] MEDS: BLOOD SUGAR DIAGNOSTIC STRIP TEST SCH ×4 (05:40→21:00)
[2020-02-27] MEDS: INSULIN LISPRO 100 UNITS/ML SUBCUT SCH ×4 (05:41→21:00)
[2020-02-27 06:44] LABS: BASOPHILS % 0.7 % (0.0-2.0); EOSINOPHILS % 5.2 % (0.0-5.0); HEMATOCRIT. 33.2 % (36.0-48.0); HEMOGLOBIN. 11.1 g/dL (12.0-16.0); MEAN CORPUSCULAR HEMOGLOBIN 32.2 pg (28.0-32.0); MEAN CORPUSCULAR VOLUME 96.5 fL (81.0-99.0); MEAN PLATELET VOLUME 7.6 fl (7.4-10.4); MONOCYTES % 9.8 % (2.0-8.0); NEUTROPHILS % 45.3 % (40.0-76.0); PLATELET 486 x1000/uL (130-400); RED BLOOD CELL COUNT 3.44 mill/uL (4.2-5.4); RED CELL DISTRIBUTION WIDTH 15.5 % (11.6-14.6)
[2020-02-27 08:00] VITALS: BP 133/59
[2020-02-27] MEDS: AMLODIPINE 5MG TABLET PO SCH ×2 (08:42→21:40)
[2020-02-27] MEDS: EZETIMIBE 10MG TABLET PO SCH (08:42)
[2020-02-27] MEDS: DOCUSATE SODIUM SUGAR FREE 100MG/10ML UDC PO SCH ×2 (08:42→17:36)
[2020-02-27] MEDS: ASPIRIN 81MG TABLET PO SCH ×2 (08:42→17:36)
[2020-02-27] MEDS: LOSARTAN POTASSIUM 25 MG TABLET PO SCH ×2 (08:43→21:41)
[2020-02-27] MEDS: METOPROLOL TARTRATE 25MG TABLET PO SCH ×2 (08:43→21:42)
[2020-02-27 13:20] VITALS: BP 116/41
[2020-02-27 20:00] VITALS: BP 137/55
[2020-02-27] MEDS: FAMOTIDINE 20MG TABLET PO SCH (21:40)
[2020-02-27] MEDS: ATORVASTATIN CALCIUM 20MG TABLET PO SCH (21:41)
[2020-02-27] MEDS: POLYETHYLENE GLYCOL 3350 (17GM) 1 DOSE PACK PO SCH (21:43)
[2020-02-28] MEDS: BLOOD SUGAR DIAGNOSTIC STRIP TEST SCH ×4 (06:02→21:08)
[2020-02-28] MEDS: HYDRALAZINE HCL 100MG TABLET PO SCH ×3 (06:02→22:46)
[2020-02-28] MEDS: INSULIN LISPRO 100 UNITS/ML SUBCUT SCH ×4 (06:02→21:00)
[2020-02-28 08:12] VITALS: BP 142/46
[2020-02-28] MEDS: DOCUSATE SODIUM SUGAR FREE 100MG/10ML UDC PO SCH ×3 (09:00→17:27)
[2020-02-28] MEDS: ASPIRIN 81MG TABLET PO SCH ×2 (09:02→17:27)
[2020-02-28] MEDS: METOPROLOL TARTRATE 25MG TABLET PO SCH ×2 (09:02→21:08)
[2020-02-28] MEDS: LOSARTAN POTASSIUM 25 MG TABLET PO SCH ×2 (09:02→21:06)
[2020-02-28] MEDS: EZETIMIBE 10MG TABLET PO SCH (09:03)
[2020-02-28] MEDS: AMLODIPINE 5MG TABLET PO SCH ×2 (09:03→21:07)
[2020-02-28] MEDS: ACETAMINOPHEN 500MG TABLET PO SCH ×3 (09:03→17:27)
[2020-02-28] MEDS ORDERED: BISACODYL 5MG TABLET PO PRN (14:00)
[2020-02-28 20:00] VITALS: BP 116/46
[2020-02-28] MEDS: FAMOTIDINE 20MG TABLET PO SCH (21:06)
[2020-02-28] MEDS: ATORVASTATIN CALCIUM 20MG TABLET PO SCH (21:06)
[2020-02-28] MEDS: POLYETHYLENE GLYCOL 3350 (17GM) 1 DOSE PACK PO SCH (21:13)
[2020-02-29] MEDS: BLOOD SUGAR DIAGNOSTIC STRIP TEST SCH ×4 (05:50→21:20)
[2020-02-29] MEDS: HYDRALAZINE HCL 100MG TABLET PO SCH ×3 (05:50→22:27)
[2020-02-29] MEDS: INSULIN LISPRO 100 UNITS/ML SUBCUT SCH ×4 (05:50→21:00)
[2020-02-29 07:51] VITALS: BP 123/68
[2020-02-29 08:02] VITALS: BP 123/68
[2020-02-29] MEDS: DOCUSATE SODIUM SUGAR FREE 100MG/10ML UDC PO SCH ×2 (08:19→17:38)
[2020-02-29] MEDS: ASPIRIN 81MG TABLET PO SCH ×2 (08:20→17:37)
[2020-02-29] MEDS: AMLODIPINE 5MG TABLET PO SCH ×2 (08:20→21:18)
[2020-02-29] MEDS: METOPROLOL TARTRATE 25MG TABLET PO SCH ×2 (08:20→22:27)
[2020-02-29] MEDS: ACETAMINOPHEN 500MG TABLET PO SCH ×3 (08:20→17:38)
[2020-02-29] MEDS: EZETIMIBE 10MG TABLET PO SCH (08:20)
[2020-02-29] MEDS: LOSARTAN POTASSIUM 25 MG TABLET PO SCH ×2 (08:20→21:19)
[2020-02-29 20:08] VITALS: BP 137/56
[2020-02-29] MEDS: FAMOTIDINE 20MG TABLET PO SCH (21:18)
[2020-02-29] MEDS: POLYETHYLENE GLYCOL 3350 (17GM) 1 DOSE PACK PO SCH (21:18)
[2020-02-29] MEDS: ATORVASTATIN CALCIUM 20MG TABLET PO SCH (21:19)
[2020-03-01] MEDS: BLOOD SUGAR DIAGNOSTIC STRIP TEST SCH ×4 (06:17→21:24)
[2020-03-01] MEDS: HYDRALAZINE HCL 100MG TABLET PO SCH ×3 (06:17→21:20)
[2020-03-01] MEDS: INSULIN LISPRO 100 UNITS/ML SUBCUT SCH ×4 (06:50→21:00)
[2020-03-01 07:29] LABS: CHLORIDE 109 mEq/L (98-107)
[2020-03-01 07:38] LABS: BASOPHILS % 0.6 % (0.0-2.0); EOSINOPHILS % 5.3 % (0.0-5.0); HEMOGLOBIN. 10.1 g/dL (12.0-16.0); LYMPHOCYTES % 37.8 % (20.0-50.0); MEAN CORPUSCULAR HEMOGLOBIN 31.1 pg (28.0-32.0); MEAN CORPUSCULAR VOLUME 95.9 fL (81.0-99.0); MEAN PLATELET VOLUME 8.7 fl (7.4-10.4); MONOCYTES % 9.1 % (2.0-8.0); NEUTROPHILS % 47.2 % (40.0-76.0); PLATELET 415 x1000/uL (130-400); RED BLOOD CELL COUNT 3.24 mill/uL (4.2-5.4); RED CELL DISTRIBUTION WIDTH 15.5 % (11.6-14.6)
[2020-03-01 07:42] VITALS: BP 120/50
[2020-03-01] MEDS: DOCUSATE SODIUM SUGAR FREE 100MG/10ML UDC PO SCH ×3 (08:42→16:33)
[2020-03-01] MEDS: METOPROLOL TARTRATE 25MG TABLET PO SCH ×2 (08:43→21:21)
[2020-03-01] MEDS: EZETIMIBE 10MG TABLET PO SCH (08:43)
[2020-03-01] MEDS: LOSARTAN POTASSIUM 25 MG TABLET PO SCH ×2 (08:43→21:19)
[2020-03-01] MEDS: ACETAMINOPHEN 500MG TABLET PO SCH ×2 (08:43→13:00)
[2020-03-01] MEDS: ASPIRIN 81MG TABLET PO SCH ×2 (08:43→16:33)
[2020-03-01] MEDS: AMLODIPINE 5MG TABLET PO SCH ×2 (08:43→21:23)
[2020-03-01] MEDS ORDERED: HYDR100T26 PO (12:03)
[2020-03-01] MEDS ORDERED: ACET-2708 PO (12:03)
[2020-03-01] MEDS ORDERED: AMLO5TAB88 PO (12:03)
[2020-03-01] MEDS ORDERED: ASPI-1160 PO ×2 (12:03→12:05)
[2020-03-01 13:57] VITALS: BP 111/38
[2020-03-01] MEDS ORDERED: ACETAMINOPHEN 500MG TABLET PO PRN (15:45)
[2020-03-01 20:00] VITALS: BP 123/45
[2020-03-01] MEDS: ATORVASTATIN CALCIUM 20MG TABLET PO SCH (21:20)
[2020-03-01] MEDS: FAMOTIDINE 20MG TABLET PO SCH (21:20)
[2020-03-01] MEDS: POLYETHYLENE GLYCOL 3350 (17GM) 1 DOSE PACK PO SCH (21:23)
[2020-03-02] MEDS: BLOOD SUGAR DIAGNOSTIC STRIP TEST SCH ×2 (05:48→11:27)
[2020-03-02] MEDS: HYDRALAZINE HCL 100MG TABLET PO SCH ×2 (06:22→13:07)
[2020-03-02 08:00] VITALS: BP 164/51
[2020-03-02] MEDS: DOCUSATE SODIUM SUGAR FREE 100MG/10ML UDC PO SCH (08:06)
[2020-03-02] MEDS: AMLODIPINE 5MG TABLET PO SCH (08:07)
[2020-03-02] MEDS: LOSARTAN POTASSIUM 25 MG TABLET PO SCH (08:07)
[2020-03-02] MEDS: ASPIRIN 81MG TABLET PO SCH (08:07)
[2020-03-02] MEDS: EZETIMIBE 10MG TABLET PO SCH (08:07)
[2020-03-02] MEDS: INSULIN LISPRO 100 UNITS/ML SUBCUT SCH ×2 (08:08→11:27)
[2020-03-02] MEDS: METOPROLOL TARTRATE 25MG TABLET PO SCH (08:08)
[2020-03-02 09:09] VITALS: BP 144/48
[2020-03-02 09:48] VITALS: BP 144/48
== END 2020-03-02 16:00 | disposition home or self-care (01) | DRG 535 ==
PROVIDERS: ADMIT Physical Medicine & Rehabilitation Spinal Cord Injury Medicine; ATTEND Internal Medicine
DX: S72.012A Unspecified intracapsular fracture of left femur, initial encounter for closed fracture (principal); S72.011A Unspecified intracapsular fracture of right femur, initial encounter for closed fracture; G92 Toxic encephalopathy; N17.0 Acute kidney failure with tubular necrosis; L97.419 Non-pressure chronic ulcer of right heel and midfoot with unspecified severity; R53.81 Other malaise; E78.5 Hyperlipidemia, unspecified; D50.9 Iron deficiency anemia, unspecified; I10 Essential (primary) hypertension; M48.02 Spinal stenosis, cervical region; E11.51 Type 2 diabetes mellitus with diabetic peripheral angiopathy without gangrene; I25.10 Atherosclerotic heart disease of native coronary artery without angina pectoris; L60.3 Nail dystrophy; E55.9 Vitamin D deficiency, unspecified; I65.29 Occlusion and stenosis of unspecified carotid artery; R26.9 Unspecified abnormalities of gait and mobility; E86.0 Dehydration; E11.621 Type 2 diabetes mellitus with foot ulcer; W18.39XA Other fall on same level, initial encounter; Z96.60 Presence of unspecified orthopedic joint implant; K59.00 Constipation, unspecified; Y93.89 Activity, other specified; Y92.89 Other specified places as the place of occurrence of the external cause; Y99.8 Other external cause status; Z86.73 Personal history of transient ischemic attack (TIA), and cerebral infarction without residual deficits; Z95.1 Presence of aortocoronary bypass graft; Z82.49 Family history of ischemic heart disease and other diseases of the circulatory system; Z56.0 Unemployment, unspecified
CPT/HCPCS: 36415; 76770; 80048; 80053; 81003; 82962; 83735; 84100; 84134; 85025; 92523; 92610; 93970; 94640; 97110; 97112; 97116; 97162; 97166; 97530; 97535; J0690; J1815; J3420; J7050

== ENCOUNTER 2021-10-18 19:17 | Inpatient (IN) | payer MEDICARE, MEDICAID ==
[~2021-10-18] VITALS: Ht 160 cm; Wt 58.1 kg
[~2021-10-18 19:17] MED LIST changes: +ACET-2708 PO; +AMLO5TAB88 PO; +ASPI-1160 PO; -ASPI325T85 PO; -INSULIN; +LEVO750T46 MT; -POTA20TA82; -VALS320T2
[2021-10-18 22:20] LABS: CHLORIDE 112 mEq/L (98-107); HEMATOCRIT. 32.7 % (36.0-48.0); HEMOGLOBIN. 10.8 g/dL (12.0-16.0); MEAN CORPUSCULAR HEMOGLOBIN 31.9 pg (28.0-32.0); MEAN CORPUSCULAR VOLUME 96.7 fL (81.0-99.0); MEAN PLATELET VOLUME 8.4 fl (7.4-10.4); PLATELET 298 x1000/uL (130-400); RED BLOOD CELL COUNT 3.38 mill/uL (4.2-5.4); RED CELL DISTRIBUTION WIDTH 15.7 % (11.6-14.6)
[2021-10-18 22:37] LABS: CLARITY URINE CLOUDY (CLEAR); COLOR URINE DARK YELLOW (YELLOW); KETONES URINE TRACE (NEGATIVE); LEUKOCYTE ESTERASE URINE 3+ (NEGATIVE); NITRITE URINE NEGATIVE (NEGATIVE); OCCULT BLOOD URINE TRACE (NEGATIVE); PROTEIN URINE 1+ (NEGATIVE); SPECIFIC GRAVITY URINE 1.019 (1.005-1.030); UROBILINOGEN URINE 0.2 E.U./dL (0.2-1.0)
[2021-10-18 22:45] LABS: PLATELET ESTIMATE NORMAL
[2021-10-18] MEDS ORDERED: CEFTRIAXONE 2 G PREMIX 50 ML IV NR (23:00)
[2021-10-18] MEDS ORDERED: SODIUM CHLORIDE 0.9% 1,000 ML IV ONE (23:00)
[2021-10-19] MEDS ORDERED: ENOXAPARIN 30MG/0.3ML SYR SUBCUT NR (00:30)
[2021-10-19] MEDS ORDERED: ACETAMINOPHEN 325MG TABLET PO PRN (00:45)
[2021-10-19] MEDS: SODIUM CHLORIDE 0.9% 1,000 ML IV SCH ×2 (01:08→14:29)
[2021-10-19] MEDS: METOPROLOL TARTRATE 25MG TABLET PO SCH ×2 (09:00→21:36)
[2021-10-19] MEDS: AMLODIPINE 2.5MG TABLET PO SCH ×2 (10:00→21:36)
[2021-10-19 11:08] LABS: BASOPHILS % 0.3 % (0.0-2.0); EOSINOPHILS % 2.5 % (0.0-5.0); HEMATOCRIT. 29.4 % (36.0-48.0); HEMOGLOBIN. 9.6 g/dL (12.0-16.0); LYMPHOCYTES % 41.2 % (20.0-50.0); MEAN CORPUSCULAR HEMOGLOBIN 31.3 pg (28.0-32.0); MEAN CORPUSCULAR VOLUME 96.4 fL (81.0-99.0); MEAN PLATELET VOLUME 8.3 fl (7.4-10.4); MONOCYTES % 6.4 % (2.0-8.0); NEUTROPHILS % 49.6 % (40.0-76.0); PLATELET 256 x1000/uL (130-400); RED BLOOD CELL COUNT 3.06 mill/uL (4.2-5.4); RED CELL DISTRIBUTION WIDTH 15.9 % (11.6-14.6)
[2021-10-19 11:51] VITALS: BP 115/60
[2021-10-19 12:00] VITALS: BP 115/60
[2021-10-19] MEDS: ASPIRIN 81MG EC TABLET PO SCH (14:29)
[2021-10-19 16:00] VITALS: BP 110/62
[2021-10-19 20:00] VITALS: BP 140/48
[2021-10-19] MEDS: ATORVASTATIN CALCIUM 20MG TABLET PO SCH (21:36)
[2021-10-19] MEDS: CEFTRIAXONE 1,000 MG in DEXTROSE 5% WATER 50 ML IV SCH (21:43)
[2021-10-19] MEDS ORDERED: CEFTRIAXONE 1,000 MG in DEXTROSE 5% WATER 50 ML IV SCH (23:00)
[2021-10-20] VITALS: BP 152/51
[2021-10-20] MEDS ORDERED: CEFTRIAXONE 1 G PREMIX 50 ML IV SCH
[2021-10-20 04:00] VITALS: BP 159/66
[2021-10-20 07:04] LABS: BASOPHILS % 0.3 % (0.0-2.0); EOSINOPHILS % 3.1 % (0.0-5.0); HEMATOCRIT. 27.2 % (36.0-48.0); HEMOGLOBIN. 9.1 g/dL (12.0-16.0); LYMPHOCYTES % 46.7 % (20.0-50.0); MEAN CORPUSCULAR HEMOGLOBIN 32.7 pg (28.0-32.0); MEAN CORPUSCULAR VOLUME 98.1 fL (81.0-99.0); MEAN PLATELET VOLUME 8.6 fl (7.4-10.4); MONOCYTES % 6.4 % (2.0-8.0); NEUTROPHILS % 43.5 % (40.0-76.0); PLATELET 235 x1000/uL (130-400); RED BLOOD CELL COUNT 2.77 mill/uL (4.2-5.4); RED CELL DISTRIBUTION WIDTH 15.7 % (11.6-14.6)
[2021-10-20 08:00] VITALS: BP 147/68
[2021-10-20] MEDS ORDERED: CLONIDINE 0.1MG TABLET PO PRN (10:15)
[2021-10-20] MEDS: ASPIRIN 81MG EC TABLET PO SCH (10:53)
[2021-10-20] MEDS: METOPROLOL TARTRATE 25MG TABLET PO SCH ×2 (10:53→21:00)
[2021-10-20 12:00] VITALS: BP 161/44
[2021-10-20 16:00] VITALS: BP 116/42
[2021-10-20 20:00] VITALS: BP 137/52
[2021-10-20] MEDS: ATORVASTATIN CALCIUM 20MG TABLET PO SCH (20:58)
[2021-10-20] MEDS: AMLODIPINE 5MG TABLET PO SCH (20:58)
[2021-10-20] MEDS: CEFTRIAXONE 1,000 MG in DEXTROSE 5% WATER 50 ML IV SCH (20:58)
[2021-10-21] VITALS: BP 153/67
[2021-10-21 04:00] VITALS: BP 154/51
[2021-10-21 08:00] VITALS: BP 163/74
[2021-10-21] MEDS: AMLODIPINE 5MG TABLET PO SCH ×3 (08:09→20:27)
[2021-10-21] MEDS: ASPIRIN 81MG EC TABLET PO SCH (08:09)
[2021-10-21] MEDS: METOPROLOL TARTRATE 25MG TABLET PO SCH ×2 (08:09→20:22)
[2021-10-21 12:00] VITALS: BP 125/53
[2021-10-21] MEDS: HYDRALAZINE HCL 25MG TABLET PO SCH ×2 (13:29→21:14)
[2021-10-21 16:00] VITALS: BP 115/43
[2021-10-21 20:00] VITALS: BP 126/48
[2021-10-21] MEDS: CEFTRIAXONE 1,000 MG in DEXTROSE 5% WATER 50 ML IV SCH (20:21)
[2021-10-21] MEDS: ATORVASTATIN CALCIUM 20MG TABLET PO SCH (20:22)
[2021-10-22] VITALS: BP 131/44
[2021-10-22 04:00] VITALS: BP 160/59
[2021-10-22] MEDS: HYDRALAZINE HCL 25MG TABLET PO SCH ×3 (05:33→21:25)
[2021-10-22 06:55] LABS: BASOPHILS % 0.6 % (0.0-2.0); EOSINOPHILS % 3.2 % (0.0-5.0); HEMATOCRIT. 27.9 % (36.0-48.0); HEMOGLOBIN. 9.3 g/dL (12.0-16.0); LYMPHOCYTES % 43.8 % (20.0-50.0); MEAN CORPUSCULAR HEMOGLOBIN 32.6 pg (28.0-32.0); MEAN CORPUSCULAR VOLUME 98.2 fL (81.0-99.0); MEAN PLATELET VOLUME 8.8 fl (7.4-10.4); MONOCYTES % 7.2 % (2.0-8.0); NEUTROPHILS % 45.2 % (40.0-76.0); PLATELET 247 x1000/uL (130-400); RED BLOOD CELL COUNT 2.84 mill/uL (4.2-5.4); RED CELL DISTRIBUTION WIDTH 15.4 % (11.6-14.6)
[2021-10-22 08:00] VITALS: BP 138/48
[2021-10-22] MEDS: AMLODIPINE 5MG TABLET PO SCH ×2 (09:13→20:59)
[2021-10-22] MEDS: ASPIRIN 81MG EC TABLET PO SCH (09:13)
[2021-10-22] MEDS: METOPROLOL TARTRATE 25MG TABLET PO SCH ×2 (09:14→20:59)
[2021-10-22 12:00] VITALS: BP 154/48
[2021-10-22 16:00] VITALS: BP 150/54
[2021-10-22 20:00] VITALS: BP 154/50
[2021-10-22] MEDS: CEFTRIAXONE 1,000 MG in DEXTROSE 5% WATER 50 ML IV SCH (20:58)
[2021-10-22] MEDS: ATORVASTATIN CALCIUM 20MG TABLET PO SCH (20:59)
[2021-10-23] VITALS (7 sets, daily range): BP systolic 134–180; BP diastolic 48–67
[2021-10-23] MEDS: HYDRALAZINE HCL 25MG TABLET PO SCH ×2 (05:28→14:01)
[2021-10-23] MEDS: ASPIRIN 81MG EC TABLET PO SCH (08:16)
[2021-10-23] MEDS: AMLODIPINE 5MG TABLET PO SCH (08:16)
[2021-10-23] MEDS: METOPROLOL TARTRATE 25MG TABLET PO SCH (08:17)
[2021-10-23] MEDS ORDERED: NITR100C MT (15:27)
== END 2021-10-23 21:05 | disposition home or self-care (01) | DRG 280 ==
LOC: ER 19:17 → 8WST 10-19 00:09 → ENRESERV 10-19 07:21
PROVIDERS: ADMIT Family Medicine Adult Medicine; ATTEND Family Medicine Adult Medicine
DX: I21.4 Non-ST elevation (NSTEMI) myocardial infarction (principal); G93.41 Metabolic encephalopathy; N17.0 Acute kidney failure with tubular necrosis; E46 Unspecified protein-calorie malnutrition; N39.0 Urinary tract infection, site not specified; I13.10 Hypertensive heart and chronic kidney disease without heart failure, with stage 1 through stage 4 chronic kidney disease, or unspecified chronic kidney disease; D63.8 Anemia in other chronic diseases classified elsewhere; E11.22 Type 2 diabetes mellitus with diabetic chronic kidney disease; E78.00 Pure hypercholesterolemia, unspecified; F03.90 Unspecified dementia, unspecified severity, without behavioral disturbance, psychotic disturbance, mood disturbance, and anxiety; H91.10 Presbycusis, unspecified ear; Z96.649 Presence of unspecified artificial hip joint; R00.1 Bradycardia, unspecified; E78.5 Hyperlipidemia, unspecified; I25.10 Atherosclerotic heart disease of native coronary artery without angina pectoris; N18.9 Chronic kidney disease, unspecified; Z79.4 Long term (current) use of insulin; Z79.899 Other long term (current) drug therapy; Z86.73 Personal history of transient ischemic attack (TIA), and cerebral infarction without residual deficits; Z95.1 Presence of aortocoronary bypass graft; Z95.5 Presence of coronary angioplasty implant and graft; Z68.22 Body mass index [BMI] 22.0-22.9, adult
CPT/HCPCS: 36415; 71045; 80048; 80053; 81003; 83735; 84484; 85025; 87077; 87186; 93005; 93306; 97162; 99291; J0696; J1650; J7060